=== PATIENT | female | born 1940 | race Caucasian/White ===

== ENCOUNTER 2019-08-04 08:40 | Day surgery (SDC) | payer MEDICARE, OTHER ==
[~2019-08-04] VITALS: Ht 160 cm; Wt 52.3 kg
[2019-08-04 09:40] VITALS: BP 150/72
[2019-08-04] MEDS ORDERED: SODIUM CHLORIDE 0.9% 1,000 ML IV SCH (09:43)
[2019-08-04] MEDS ORDERED: TESTOSTERONE TP (09:47)
[2019-08-04] MEDS ORDERED: LEVO75TA PO (09:47)
[2019-08-04] MEDS ORDERED: ESTRADIOL TP (09:47)
[2019-08-04] MEDS ORDERED: MULT-257 PO (09:48)
[2019-08-04 09:58] LABS: INTERNATIONAL NORMALIZED RATIO 0.98 (0.93-1.1); PROTHROMBIN TIME 10.4 Seconds (9.6-11.5)
[2019-08-04] MEDS ORDERED: NALOXONE 1 MG/ML, 2ML ONE (10:50)
[2019-08-04] MEDS ORDERED: FENTANYL PF 100 MCG/2ML ONE (10:50)
[2019-08-04] MEDS ORDERED: FLUMAZENIL 0.1 MG/1 ML, 5ML ONE (10:50)
[2019-08-04] MEDS ORDERED: MIDAZOLAM 1 MG/ML, 5ML ONE (10:50)
== END 2019-08-04 13:00 | disposition home or self-care (01) ==
LOC: RAD 08:40
PROVIDERS: ATTEND Internal Medicine Geriatric Medicine
DX: K76.89 Other specified diseases of liver (principal); E03.9 Hypothyroidism, unspecified; Z90.710 Acquired absence of both cervix and uterus; Z72.89 Other problems related to lifestyle; Z79.899 Other long term (current) drug therapy
CPT/HCPCS: 36415; 47000; 77012; 85610; 88307; 88313; 88341; 88342; 99156; 99157; J2250; J3010; J7030; J2310